=== PATIENT | female | born 1960 | race Caucasian/White ===

== ENCOUNTER 2018-10-28 06:38 | Day surgery (SDC) | payer OTHER ==
[~2018-10-28 06:38] MED LIST: ATACAND32 MG PO; CLONAZEPAM1 MG PO; NEURONTIN800 MG PO; PRISTIQ ER50 MG PO; SYNTHROID112 MCG PO
== END 2018-10-28 12:50 | disposition home or self-care (01) ==
LOC: CIR.AMB 06:38
DX: M75.41 Impingement syndrome of right shoulder (principal); M19.011 Primary osteoarthritis, right shoulder